=== PATIENT | female | born 1965 | race African-American/Black ===

== ENCOUNTER 2020-03-16 15:48 | Emergency (ER) | payer OTHER ==
[~2020-03-16] VITALS: Ht 167.6 cm; Wt 118.2 kg
[~2020-03-16 15:48] MED LIST: NOCURR
[2020-03-16] MEDS ORDERED: QUET100T PO (15:51)
[2020-03-16] MEDS ORDERED: QUET200T PO (19:10)
[2020-03-16] MEDS ORDERED: HALOPERIDOL 5 MG TABLET PO ONE (19:15)
[2020-03-16 19:38] VITALS: BP 136/100
== END 2020-03-16 19:41 | disposition home or self-care (01) ==
LOC: EMS 15:48
DX: F20.9 Schizophrenia, unspecified (principal); F17.210 Nicotine dependence, cigarettes, uncomplicated
CPT/HCPCS: 99284; Z7502; Z7610

== ENCOUNTER 2022-01-05 18:48 | Emergency (ER) | payer MEDICAID, OTHER ==
[~2022-01-05] VITALS: Ht 170.2 cm; Wt 113.6 kg
[~2022-01-05 18:48] MED LIST changes: -NOCURR; +QUET200T PO
[2022-01-05 18:50] VITALS: BP 142/91
[2022-01-05 19:46] LABS: BASOPHILS % (AUTO) 0.7 % (0.0-2.0); EOSINOPHILS % (AUTO) 1.7 % (1.0-6.0); HEMATOCRIT 40.4 % (36-46); HEMOGLOBIN 13.2 g/dL (12.0-16.0); LYMPHOCYTES # (AUTO) 3.9 K/uL (1.0-4.8); LYMPHOCYTES % (AUTO) 39.2 % (22.0-44.0); MEAN CORPUSCULAR HEMOGLOBIN 28.2 pg (26.0-34.0); MEAN CORPUSCULAR HGB CONC 32.7 G/dL (31.0-37.0); MEAN CORPUSCULAR VOLUME 86 fL (80-100); MONOCYTES # (AUTO) 0.6 K/uL (0.1-1.0); NEUTROPHILS # (AUTO) 5.3 K/uL (1.8-7.7); NEUTROPHILS % (AUTO) 52.4 % (40.0-70.0); PLATELET COUNT (AUTO) 301 K/uL (150-450); RED BLOOD CELL COUNT(AUTO) 4.69 MIL/uL (4.00-5.20); RED CELL DISTRIBUTION WIDTH 15.7 % (11.5-14.5)
[2022-01-05 19:54] LABS: ANION GAP 7 mmol/L (8-16); CALCIUM, TOTAL 9.5 mg/dL (8.8-10.5); CARBON DIOXIDE 27 mmol/L (22-29); CHLORIDE 105 mmol/L (98-107); CREATININE 1.28 mg/dL (0.60-1.30); GLUCOSE,RANDOM 119 mg/dL (70-110); POTASSIUM 3.5 mmol/L (3.5-5.1); SODIUM SERUM 139 mmol/L (136-145); UREA NITROGEN, BLOOD 13 mg/dL (7-18)
[2022-01-05 19:57] LABS: GLOMERULAR FILTR. RATE CALC 52 mL/min (>60)
[2022-01-05 20:00] LABS: ALANINE AMINOTRANSFERASE 19 U/L (12-78); ALBUMIN 3.5 g/dL (3.4-5.0); ALKALINE PHOSPHATASE 115 U/L (46-116); ASPARTATE AMINOTRANSFERASE 17 U/L (15-37); BILIRUBIN,TOTAL 0.2 mg/dL (0.1-1.0); TOTAL PROTEIN, SERUM 8.1 g/dL (6.4-8.2)
[2022-01-05] MEDS ORDERED: HALOPERIDOL 5 MG TABLET PO ONE (20:15)
== END 2022-01-05 20:38 | disposition home or self-care (01) ==
LOC: EMS 18:48
DX: F20.9 Schizophrenia, unspecified (principal); F17.210 Nicotine dependence, cigarettes, uncomplicated
CPT/HCPCS: 99284; 80053; 85025; 36415; G0480

== ENCOUNTER 2022-08-29 13:38 | Emergency (ER) | payer OTHER ==
[~2022-08-29] VITALS: Ht 167.6 cm; Wt 118.2 kg
[2022-08-29 13:44] VITALS: BP 99/53; PULSE 100; RESP 18; TEMP 98.6
[2022-08-29 14:28] LABS: BASOPHILS % (AUTO) 0.6 % (0.0-2.0); EOSINOPHILS % (AUTO) 2.6 % (1.0-6.0); HEMATOCRIT 38.7 % (36-46); HEMOGLOBIN 12.3 g/dL (12.0-16.0); LYMPHOCYTES # (AUTO) 3.3 K/uL (1.0-4.8); LYMPHOCYTES % (AUTO) 46.6 % (22.0-44.0); MEAN CORPUSCULAR HEMOGLOBIN 27.9 pg (26.0-34.0); MEAN CORPUSCULAR HGB CONC 31.9 G/dL (31.0-37.0); MEAN CORPUSCULAR VOLUME 88 fL (80-100); MONOCYTES # (AUTO) 0.5 K/uL (0.1-1.0); MONOCYTES % (AUTO) 6.6 % (2.0-9.0); NEUTROPHILS # (AUTO) 3.1 K/uL (1.8-7.7); NEUTROPHILS % (AUTO) 43.6 % (40.0-70.0); PLATELET COUNT (AUTO) 242 K/uL (150-450); RED BLOOD CELL COUNT(AUTO) 4.42 MIL/uL (4.00-5.20); RED CELL DISTRIBUTION WIDTH 16.4 % (11.5-14.5)
[2022-08-29 14:40] LABS: ANION GAP 7 mmol/L (8-16); CALCIUM, TOTAL 8.3 mg/dL (8.8-10.5); CARBON DIOXIDE 27 mmol/L (22-29); CHLORIDE 108 mmol/L (98-107); GLOMERULAR FILTR. RATE CALC 51 mL/min (>60); GLUCOSE,RANDOM 183 mg/dL (70-110); POTASSIUM 3.5 mmol/L (3.5-5.1); SODIUM SERUM 142 mmol/L (136-145)
[2022-08-29 14:45] LABS: ALANINE AMINOTRANSFERASE 14 U/L (12-78); ALBUMIN 2.8 g/dL (3.4-5.0); ALKALINE PHOSPHATASE 91 U/L (46-116); ASPARTATE AMINOTRANSFERASE 13 U/L (15-37); BILIRUBIN,TOTAL 0.2 mg/dL (0.1-1.0); TOTAL PROTEIN, SERUM 6.6 g/dL (6.4-8.2)
[2022-08-29] MEDS ORDERED: OLANZapine 5 MG TABLET PO ONE (15:15)
[2022-08-29] MEDS ORDERED: QUET400T54 PO (15:21)
[2022-08-29] MEDS ORDERED: HALO.5 PO (15:21)
== END 2022-08-29 16:51 | disposition home or self-care (01) ==
LOC: EMS 13:38
DX: F20.9 Schizophrenia, unspecified (principal); F17.210 Nicotine dependence, cigarettes, uncomplicated; F15.90 Other stimulant use, unspecified, uncomplicated
CPT/HCPCS: 99284; 80053; 84703; 85025; G0480

== ENCOUNTER 2023-02-20 04:48 | Emergency (ER) | payer OTHER ==
[~2023-02-20] VITALS: Ht 167.6 cm; Wt 118.2 kg
[~2023-02-20 04:48] MED LIST changes: +HALO.5 PO; -QUET200T PO; +QUET400T54 PO
[2023-02-20 05:30] VITALS: BP 133/89; PULSE 66; RESP 16; TEMP 98.3
[2023-02-20] MEDS ORDERED: QUET200T PO (05:30)
[2023-02-20] MEDS ORDERED: QUEtiapine FUMARATE 100 MG TABLET PO ONE (05:45)
== END 2023-02-20 05:57 | disposition home or self-care (01) ==
LOC: EMS 04:49
DX: F20.9 Schizophrenia, unspecified (principal); F17.210 Nicotine dependence, cigarettes, uncomplicated; F15.90 Other stimulant use, unspecified, uncomplicated; Z76.0 Encounter for issue of repeat prescription
CPT/HCPCS: 99283

== ENCOUNTER 2023-03-05 15:59 | Emergency (ER) | payer OTHER ==
[~2023-03-05] VITALS: Ht 167.6 cm; Wt 118.2 kg
[~2023-03-05 15:59] MED LIST changes: +QUET200T PO
[2023-03-05 16:02] VITALS: BP 155/105; PULSE 90; RESP 18; TEMP 98.6
[2023-03-05] MEDS ORDERED: HALO.5 PO (16:32)
[2023-03-05] MEDS ORDERED: QUET200T PO (16:32)
== END 2023-03-05 16:52 | disposition home or self-care (01) ==
LOC: EMS 16:00
DX: F20.9 Schizophrenia, unspecified (principal); F17.210 Nicotine dependence, cigarettes, uncomplicated; F15.90 Other stimulant use, unspecified, uncomplicated; Z76.0 Encounter for issue of repeat prescription
CPT/HCPCS: 99282; Z7502